=== PATIENT | female | born 1995 | race Caucasian/White ===

== ENCOUNTER 2019-07-12 21:42 | Emergency (ER) | payer SELFPAY ==
--- NOTE | 2019-07-12 22:00 | EDM.PDOC ---
ED HPI GENERAL MEDICAL PROBLEM - General Chief Complaint: Lower Extremity Injury/Pain Stated Complaint: DROPPED SOMETHING ON RIGHT FOOT Time Seen by Provider: 07/12/19 21:52 - History of Present Illness INITIAL COMMENTS - FREE TEXT/NARRATIVE: HISTORY AND PHYSICAL: History of present illness: Patient is a 24-year-old female who presents with pain to the dorsal aspect of her right foot that started about 7 AM after she dropped a case of canned gravy on it while at work. She did not take anything for pain throughout the day and she's been walking on it and comes here for evaluation. She has noticed it is more swollen than this morning and she has no other injuries as a result of these events. She has no systemic complaints and she denies . She has no proximal ankle leg knee or hip pain on the right. Review of systems: As per history of present illness and below otherwise all systems reviewed and negative. Past medical history: As per history of present illness and as reviewed below otherwise noncontributory. Surgical history: As per history of present illness and as reviewed below otherwise noncontributory. Social history: No reported history of drug or alcohol abuse. Family history: As per history of present illness and as reviewed below otherwise noncontributory. Physical exam: General: Well-developed well-nourished female who is nontoxic and vital signs are noted by me. She ambulated into triage without assistance HEENT: Atraumatic, normocephalic, negative for conjunctival pallor or scleral icterus, mucous membranes moist, throat clear, neck supple, nontender, trachea midline. Lungs: Clear to auscultation, breath sounds equal bilaterally, chest nontender. Heart: S1S2, regular and rhythm no murmurs Abdomen: Soft, nondistended, nontender. NABS Pelvis: Deferred Genitourinary: Deferred. Rectal: Deferred. Extremities: Atraumatic and full range of motion of all extremities with the exception of the dorsal aspect of the right foot where there is diffuse soft tissue swelling along the first through fourth metatarsal heads and metatarsal areas extending into the cuboids and there is some minimal ecchymosis seen and definite tenderness on palpation. There are no gross defects or deformities of the bony architecture and there is no proximal calcaneus talus ankle leg knee or hip pain on the right. The toes are intact and nontender. The legs are, negative for cords or calf pain. Neurovascular unremarkable. Neuro: Awake, alert, oriented. Cranial nerves II through XII unremarkable. Cerebellum unremarkable. Motor and sensory unremarkable throughout. Exam nonfocal. Diagnostics: X-ray right foot Therapeutics: Ice pack, patient declined pain medication, postop shoe Impression: Right foot contusion status post blunt trauma Definitive disposition and diagnosis as appropriate pending reevaluation and review of above. right foot Pain Score (Numeric/FACES): 5 - Related Data Allergies Allergy/AdvReac Type Severity Reaction Status Date / Time No Known Allergies Allergy Verified 07/12/19 21:57 Home Meds: Home Meds . [No Known Home Meds] 07/12/19 [History] Review of Systems - Review of Systems Review Of Systems: Comprehensive ROS is negative, except as noted in HPI. ED EXAM, GENERAL - Physical Exam Exam: See Below (See dictation) Course - Vital Signs Last Recorded V/S: Last Vital Signs Temp 36.1 C 07/12/19 21:51 Pulse 73 07/12/19 21:51 Resp 18 07/12/19 21:51 BP 142/89 H 07/12/19 21:51 Pulse Ox 96 07/12/19 21:51 - Orders/Labs/Meds Orders: Active Orders 24 hr Category Date Time Status DME for Discharge [COMM] Stat Oth 07/12/19 22:49 Ordered Departure - Departure Time of Disposition: 22:49 Disposition: Home, Self-Care 01 Condition: Good Clinical Impression: Right foot injury Qualifiers: Encounter type: initial encounter Qualified Code(s): S99.921A - Unspecified injury of right foot, initial encounter - Discharge Information Referrals: PCP,None [Primary Care Provider] - Forms: ED Department Discharge Additional Instructions: The following information is given to patients seen in the emergency department who are being discharged to home. This information is to outline your options for follow-up care. We provide all patients seen in our emergency department with a follow-up referral. The need for follow-up, as well as the timing and circumstances, are variable depending upon the specifics of your emergency department visit. If you don't have a primary care physician on staff, we will provide you with a referral. We always advise you to contact your personal physician following an emergency department visit to inform them of the circumstance of the visit and for follow-up with them and/or the need for any referrals to a consulting specialist. The emergency department will also refer you to a specialist when appropriate. This referral assures that you have the opportunity for followup care with a specialist. All of these measure are taken in an effort to provide you with optimal care, which includes your followup. Under all circumstances we always encourage you to contact your private physician who remains a resource for coordinating your care. When calling for followup care, please make the office aware that this follow-up is from your recent emergency room visit. If for any reason you are refused follow-up, please contact the [facility] emergency department at and ask to speak to the emergency department charge nurse Dr Eddie Buitrago [address] [place] [phone] Ice and elevate the foot as much as possible and when you need to be up and about wear the postop shoe as it is a bilingual medical receptionist and will allow for any swelling. Use [id number] ibuprofen or Tylenol for pain management. Please connect with our local set builder using resources given to above for further care and reevaluation of this injury. Return to ER as needed and as discussed - My Orders Last 24 Hours: My Active Orders 07/12/19 22:49 DME for Discharge [COMM] Stat - Assessment/Plan Last 24 Hours: My Active Orders 07/12/19 22:49 DME for Discharge [COMM] Stat
--- NOTE | 2019-07-12 22:46 | CR ---
Indication: Dropped heavy object on foot. Technique: Right foot, two views Comparison: None Findings: Bones: Alignment is normal. No fractures or bone lesions. Joint spaces: Unremarkable. Soft tissues: Dorsal soft tissue swelling. Impression: Dorsal soft tissue swelling without evidence of fracture. Dictated by Desean Carpenter MD @ Jul 12 2019 10:42PM Signed by Dr. Desean Carpenter @ Jul 12 2019 10:45PM
== END 2019-07-12 23:00 | disposition home or self-care (01) ==
LOC: MW.ED 21:42
DX: S90.31XA Contusion of right foot, initial encounter (principal); W20.8XXA Other cause of strike by thrown, projected or falling object, initial encounter; Y99.0 Civilian activity done for income or pay
CPT/HCPCS: 73620-26-RT; 73620-RT; 99282; 99283-25